=== PATIENT | male | born 1985 | race Caucasian/White ===

== ENCOUNTER 2016-04-10 12:08 | Emergency (ER) | payer OTHER ==
[~2016-04-10] VITALS: Ht 180.3 cm; Wt 111.4 kg
[~2016-04-10 12:08] MED LIST: HYDR-4003 PO; IBUP800T28 PO
[2016-04-10 12:10] VITALS: BP 152/101; PULSE 94; RESP 18; O2SAT 98
--- NOTE | 2016-04-10 12:16 | ED.REPORT ---
HPI-Abd Pain M Under 42 Date of Service Apr 10, 2016 ED Provider: Dr. Medina Pt is a 30 y/o healthy male presenting to the ED c/o non-radiating sharp right sided flank pain onset 4 hours ago. He went to Urgent Care and was given Ibuprofen but did not take any because his coworker had kidney injury from it therefore he does not want to risk taking it. His pain is mildly exacerbated by movement and mildly relieved by applying pressure to the area Pt also reports mild URI symptoms such as cough and nasal congestion. He denies fever, dysuria, hematuria, abdominal pain, rash, pleuritic pain. He has no history of kidney stones. He also c/o right foot pain which is an exacerbation of pain caused by a previous 5th metatarsal fracture which was surgically repaired by clerk rating Dr. Mcmillan. He had an x-ray of the right foot performed at Urgent Care today which was read as normal. Nursing Notes Stated Complaint: RIGHT SIDE/FOOT PAIN Chief Complaint: Male Abdominal Pain Nursing Notes Reviewed: Yes Allergies: Coded Allergies: No Known Allergies (Unverified , 04/10/16) Scheduled PRN Cyclobenzaprine (Cyclobenzaprine) 10 Mg Tablet 10 MG PO TID PRN PRN Spasm Hydrocodone-Acetaminophen 5-325 mg (Hydrocodone-Acetaminophen 5-325 mg) 1 Each Tablet 1 TABLET PO Q6H PRN PRN For Pain Ibuprofen (Ibuprofen) 800 Mg Tablet 800 MG PO TID PRN PRN For Pain oxyCODONE-Acetaminophen 5-325 mg (oxyCODONE-Acetaminophen 5-325 mg) 1 Each Tablet 1-2 TAB PO Q6H PRN PRN For Pain General Time Seen by MD: 12:16 Chief Complaint Flank pain right Hx Obtained From: Patient Arrived By: Walk-in Sudden in Onset?: Yes Onset Occurred: 1 - 4 hours ago Symptom Duration: Since onset Progression since Onset: Constant Location: : Flank right Quality: Painful, Sharp Radiation: : Does not radiate Severity: Current: Moderate Severity: Maximum: Moderate Exacerbated by: Movement Relieved by: Remaining still Similar Sx Previous: No Past Medical History Past Medical History Denies Past Surgical History None reported Smoking History Light Tobacco Smoker Ambulatory Status Independent Review of Systems Constitutional: Denies: Chills, Fever Respiratory: Reports: Non-productive cough, Denies: Shortness of breath Cardiovascular: Denies: Chest pain GI: Denies: Abdominal pain, Diarrhea, Nausea, Vomiting Male: Reports Flank pain (R), Denies Dysuria, Denies Hematuria Complete sys rev & neg: except as marked. Ears / Nose / Throat: Reports: Nasal congestion Physical Exam Initial Vital Signs Initial VS: Reviewed, Vital signs normal Head / Eyes: Atraumatic, Normocephalic, PERRL ENT: Mucous membranes moist, Conjunctiva normal, No scleral icterus Neck: Supple, Non-tender, Full range of motion Skin: Warm, Dry, No cyanosis Neurologic: Alert, Oriented, Nonfocal Psychiatric: Mood/affect normal, Behavior normal, Normal thought content General/Constitutional: Awake, Alert, No acute distress, Cooperative, Not toxic appearing Respiratory / Chest: Atraumatic, Breath sounds NL, Breath sounds = bilat, No respiratory distress, No rales, No rhonchi, No wheezing, No retractions, No stridor, No chest tenderness, No chest wall deformity, No crepitus Cardiovascular: Heart rate NL, Regular rhythm, Heart sounds NL, No gallop, No murmurs, No rubs, Cap refill not delayed, Peripheral circulation NL Abdomen: Atraumatic, Soft, No guarding, No rebound, No distention, No palpable mass Tenderness/Guarding/Rebound: Positive: Tender flank R, Negative: Tender LLQ..., Tender LUQ..., Tender RLQ..., Tender RUQ..., Tender epigastric, Tender periumbilical, Tender suprapubic Back: Atraumatic, Full range of motion, No midline vertebral tend, No muscle spasm Positive right sided CVAT Ankle / Foot: Atraumatic, No deformity, Neurologic intact, Vascular intact, No ligamentous injury, Tendon function NL, No compartment syndrome Tender over the base of the 5th metatarsal on right foot. Well healed surgical scar 1 cm in length Interpretation & Diagnostics Interpretation & Diagnostics: CT KUB: IMPRESSION: No abnormality found. Dictated by: Solitario Glass M.D. on 04/10/2016 at 15:21 Approved by: Solitario Glass M.D. on 04/10/2016 at 15:21 Lab Results Interpretation Test 04/10/16 13:22 04/10/16 13:44 White Blood Count 10.6th/mm3 (3.8-10.1) Red Blood Count 5.37mil/mm3 (4.40-5.80) Hemoglobin 16.4g/dL (13.8-17.2) Hematocrit 48.1% (41.0-50.0) Mean Corpuscular Volume 89.6fL (81-100) Mean Corpuscular Hemoglobin 30.5pg (27.0-35.0) Mean Corpuscular Hemoglobin Concent 34.1% (32.0-37.0) Red Cell Distribution Width 12.7% (12.3-15.4) Platelet Count 285bil/L (150-400) Neutrophils (%) (Auto) 68.1% (40-74) Lymphocytes (%) (Auto) 21.6% (14-46) Monocytes (%) (Auto) 8.6% (4-12) Eosinophils (%) (Auto) 1.0% (0-5) Basophils (%) (Auto) 0.4% (0-3) Sodium Level 141mEq/L (134-144) Potassium Level 4.2mEq/L (3.5-5.2) Chloride Level 104mEq/L (97-108) Carbon Dioxide Level 25mmol/L (18-29) Blood Urea Nitrogen 12mg/dL (6-20) Creatinine 1.13mg/dL (0.76-1.27) Estimat Glomerular Filtration Rate 82mL/min (>59) Glucose Level 94mg/dL (60-99) Calcium Level 10.6mg/dL (8.5-10.1) Total Bilirubin 0.4mg/dL (0.0-1.2) Aspartate Amino Transf (AST/SGOT) 25U/L (0-50) Alanine Aminotransferase (ALT/SGPT) 38U/L (0-44) Alkaline Phosphatase 94U/L (25-150) Total Protein 7.8g/dL (6.4-8.4) Albumin 4.2g/dL (3.4-5.0) Hold Luke Top Tube Received (Received) Urine Color Straw (YELLOW) Urine Appearance Clear (CLEAR,HAZY) Urine pH 6.0 (5.0-8.0) Urine Specific [place] 1.010 (1.003-1.035) Urine Protein Negativemg/dL (NEG,TRACE) Urine Glucose (UA) Negativemg/dL (NEGATIVE) Urine Ketones Negativemg/dL (NEGATIVE) Urine Occult Blood Trace (NEGATIVE) Urine Nitrite Negative (NEGATIVE) Urine Bilirubin Negative (NEGATIVE) Urine Urobilinogen Normalmg/dL (NORMAL) Urine Leukocyte Esterase Negative (NEGATIVE) Urine RBC 0-2/hpf (0-2) Urine WBC 0-5/hpf (0-5) Urine Epithelial Cells Occasional/hpf (NONE-MOD) Urine Crystals None seen (NONE SEEN) Urine Bacteria None/hpf (NONE-FEW) Urine Hyaline Casts None/lpf (NONE) Urine Granular Casts None seen (NONE SEEN) Urine Waxy Casts None seen (NONE SEEN) Urine Red Blood Cell Casts None seen (NONE SEEN) Urine White Blood Cell Casts None seen (NONE SEEN) Urine Mucus None seen (None Seen) Urine Trichomonas None seen (NONE SEEN) Urine Yeast None (NONE SEEN) Urinalysis Comment None Urine Culture Reflexed Not indicated X-Ray Abdominal Interpretation IMPRESSION: Source of right flank pain is not seen. Dictated by: Solitario Glass M.D. on 04/10/2016 at 13:11 Approved by: Solitario Glass M.D. on 04/10/2016 at 13:11 Study: 4 view Interpretation / Wet Read by: Interpret - Radiologist Re-Eval/Medical Decision Med Decision/Clinical Course 30-year-old male presents with right flank pain and hematuria. CT KUB is negative for stone. No evidence for UTI on UA. Pain is improved with oral medications. Patient will follow-up with PCP for recheck and for further evaluation if needed. Patient in agreement with this plan Source of Hx: Old records Re-Evaluation/Progress #1: Time of Eval: 14:50 Re-Evaluation/Progress Note: Informed pt of need for CT due to positive occult blood in urine. Clinical suspicion of ureteral stone is high. Re-Evaluation/Progress #2: Time of Eval: 15:56 Re-Evaluation/Progress Note: Pt rechecked. Informed pt of plan for treatment. Pt understands and agrees with plan for treatment. F/U and RTER warnings given. All questions addressed. Counseled Regarding: Diagnosis, Lab results, Need for follow-up, When/why to return to ED Patient Discharge & Departure Primary Impression: Right flank pain Additional Impression: Right foot pain Disposition: Home Discharge Condition All VS Reviewed: Yes Condition: Stable Additional Instructions: The CT scan showed no sign of kidney stone or other abnormality. Your labs were normal. Your pain may be musculoskeletal but the cause at this time is unclear and believed to not be dangerous. Take Ibuprofen as needed for aching pain and take Oxycodone every 6 hours as needed for severe, breakthrough pain. You can take the muscle relaxer as directed for muscle pain or spasms. This medication will cause drowsiness. Follow-up with a primary care doctor next week. Return to the emergency department for severe pain, if you develop a high fever , persistent vomiting, or for other concerning symptoms. Referrals: Buffy Cho MD, Nathan A DPM Scribe Attestation Portions of this note were transcribed by Bernard Fox. I, Dr. Mcghee personally performed the history, physical exam and medical decision-making; I reviewed and confirmed the accuracy of the information in the transcribed note. Signed by James Lima, 04/10/16 - 1299 copies to: Buffy Cho MD; Joel Mcmillan DPM, Gary R DO Apr 10, 2016 12:16 BERNARD FOX Apr 10, 2016 12:42 Signed by James Lima, 04/10/16 - 1299 copies to: Buffy Cho MD; Joel Mcmillan DPM, Gary R DO Apr 10, 2016 12:16 BERNARD FOX Apr 10, 2016 12:42
[2016-04-10] MEDS ORDERED: oxyCODONE-Acetamin 5-325 mg Tablet PO ONE (12:40)
--- NOTE | 2016-04-10 13:13 | DRSVH ---
PROCEDURE: X-RAY ACUTE ABDOMINAL SERIES ([id number]) INDICATIONS: Right flank pain TECHNIQUE: One view chest and two views of the abdomen were acquired. COMPARISON: None. FINDINGS: Surgical changes and devices: None. Chest: Lungs are clear. Heart size is normal. No pleural effusions. No pneumoperitoneum. Abdomen: Bowel gas pattern is normal. No suspicious calcifications. Visualized solid organ contour s appear normal. Bones: No suspicious bony lesions. IMPRESSION: Source of right flank pain is not seen. Dictated by: Solitario Glass M.D. on 04/10/2016 at 13:11 Approved by: Solitario Glass M.D. on 04/10/2016 at 13:11
[2016-04-10 13:37] LABS: BASOPHILS % (AUTO) 0.4 % (0-3); MONOCYTES % (AUTO) 8.6 % (4-12); Mean Corpuscular Hemoglobin 30.5 pg (27.0-35.0); Mean Corpuscular Volume 89.6 fL (81-100); NEUTROPHILS % (AUTO) 68.1 % (40-74); Platelet Count 285 bil/L (150-400)
[2016-04-10 14:37] LABS: APPEARANCE,URINE CLEAR (CLEAR,HAZY); COLOR,URINE STRAW (YELLOW)
[2016-04-10 14:38] LABS: OCCULT BLOOD,URINE TRACE (NEGATIVE); UROBILINOGEN,URINE NORMAL (NORMAL)
[2016-04-10 15:04] VITALS: BP 154/100; PULSE 90; O2SAT 97
--- NOTE | 2016-04-10 15:23 | DRSVH ---
PROCEDURE: CT KUB ([id number]) INDICATIONS: hematuria, R flank pain TECHNIQUE: Noncontrast 5 mm thick sections acquired from the diaphragms to the symphysis. 5 mm thick coronal an d sagittal reformats were then performed. For radiation dose reduction, the following was used: aut omated exposure control, adjustment of mA and/or kV according to patient size. COMPARISON: None. FINDINGS: Image quality: Excellent. Lung bases: Lung bases are clear. Heart size is normal. Urinary system: Both kidneys are normal in size. No kidney stones. No hydronephrosis or perinephri c fat stranding. Both ureters appear non-dilated throughout their expected courses. Bladder wall th ickness is normal; no calcified bladder stones. Other solid organs: Liver and spleen are normal in size. Gallbladder appears normal but contracted. Pancreas is normal in contours. No adrenal nodules. Peritoneum and bowel: Unenhanced bowel loops demonstrate normal wall thickness and caliber. No free fluid or air. Nodes and vessels: No retroperitoneal or mesenteric adenopathy by size criteria. Aorta and inferior vena cava are normal in caliber. Abdominal wall: No ventral hernias. Pelvis: No free pelvic fluid. No inguinal hernias or adenopathy. Bones: No suspicious bony lesions. No vertebral body compression fractures. . IMPRESSION: No abnormality found. Dictated by: Solitario Glass M.D. on 04/10/2016 at 15:21 Approved by: Solitario Glass M.D. on 04/10/2016 at 15:21
[2016-04-10] MEDS ORDERED: OXYC1TAB24 PO (16:03)
[2016-04-10] MEDS ORDERED: CYCL10TA9 PO (16:03)
== END 2016-04-10 16:35 | disposition home or self-care (01) ==
LOC: SED 12:08
DX: R10.9 Unspecified abdominal pain (principal); M79.671 Pain in right foot; R05 Cough; R09.81 Nasal congestion; G89.18 Other acute postprocedural pain; S92.351S Displaced fracture of fifth metatarsal bone, right foot, sequela; X58.XXXS Exposure to other specified factors, sequela; Y93.9 Activity, unspecified; Y99.9 Unspecified external cause status; Y92.9 Unspecified place or not applicable; F17.200 Nicotine dependence, unspecified, uncomplicated; Z98.890 Other specified postprocedural states; Z87.828 Personal history of other (healed) physical injury and trauma